=== PATIENT | male | born 1965 | race Caucasian/White ===

== ENCOUNTER 2019-04-04 18:59 | Emergency (ER) | payer OTHER ==
[2019-04-04] MEDS ORDERED: LIDOCAINE 1% INJ 10MG/ML (20 ML MDV) SQ STA (19:13)
[2019-04-04] MEDS ORDERED: WATER FOR IRRIG, STERILE 1,000 ML BTL IRRIGATION ONE (19:15)
--- NOTE | 2019-04-04 19:44 | XR ---
EXAMINATION TYPE: XR finger LT DATE OF EXAM: 04/04/2019 COMPARISON: NONE HISTORY: Laceration TECHNIQUE: 3 views FINDINGS: There is narrowing and spurring at the DIP joint. I see no fracture nor dislocation. There is no evidence of a foreign body. IMPRESSION: Osteoarthritis. No fracture seen. Laceration deformity at the PIP joint.
--- NOTE | 2019-04-04 19:59 | ED ---
General Adult HPI - General Chief complaint: Wound/Laceration Stated complaint: CUT FINGER Time Seen by Provider: 04/04/19 19:10 Source: patient, RN notes reviewed, old records reviewed Mode of arrival: ambulatory Limitations: no limitations - History of Present Illness Initial comments: 54-year-old male patient presents to ED for chief complaint laceration to his left index finger. Patient reports that he was using a ammonia box tender to cut a sausage when it slipped, going into the medial aspect adjacent to the PIP joint. Patient reports after the laceration occurred he did have paresthesias to the tips of his finger. Denies any other complaints. Systemic: Pt denies fatigue, fever/chills, rash. Pt denies weakness, night sweats, weight loss. Neuro: Pt denies headache, visual disturbances, syncope or pre-syncope. HEENT: Pt denies ocular discharge or irritation, otalgia, rhinorrhea, pharyngitis or notable lymphadenopathy. Cardiopulmonary: Pt denies chest pain, SOB, heart palpitations, dyspnea on exertion. Abdominal/GI: Pt denies abdominal pain, n/v/d. : Pt denies dysuria, burning w/ urination, frequency/urgency. Denies new onset urinary or bowel incontinence. MSK: Pt denies myalgia, loss of strength or function in extremities. Neuro: Pt denies new onset weakness, paresthesias. - Related Data Allergies Allergy/AdvReac Type Severity Reaction Status Date / Time Penicillins Allergy Rash/Hives Verified 04/04/19 19:08 Review of Systems ROS Statement: Those systems with pertinent positive or pertinent negative responses have been documented in the HPI. ROS Other: All systems not noted in ROS Statement are negative. Past Medical History Past Medical History: GERD/Reflux Additional Past Medical History / Comment(s): hiatal hernia History of Any Multi-Drug Resistant Organisms: None Reported Past Surgical History: Cholecystectomy Past Psychological History: No Psychological Hx Reported Smoking Status: Never smoker Past Alcohol Use History: Occasional Past Drug Use History: None Reported General Exam - General Exam Comments Initial Comments: Constitutional: NAD, AOX3, Pt has pleasant affect. HEENT: NC/AT, trachea midline, neck supple, no lymphadenopathy. Posterior pharynx non erythematous, without exudates. External ears appear normal, without discharge. Mucous membranes moist. Eyes PERRLA, EOM intact. There is no scleral icterus. No pallor noted. Cardiopulmonary: RRR, no murmurs, rubs or gallops, no JVD noted. Lungs CTAB in anterior and posterior feliciano. No peripheral edema. Abdominal exam: Abdomen soft and non-distended. Abdomen non-tender to palpation in all 4 quadrants. Bowel sounds active in LLQ. No hepatosplenomegaly. No ecchymosis Neuro: CN II-XII grossly intact. No nuchal rigidity. No raccon eyes, no esquivel sign, no hemotympanum. No cervical spinal tenderness. MSK: 2 cm laceration medial aspect of PIP joint second digit left hand. Gross sensation is intact, flexion at the PIP joint slightly limited. Otherwise range of motion is intact. Approximately with 5 simple interrupted sutures. Patient placed in a finger splint. Capillary refill less than 2 seconds. No posterior calf tenderness bilaterally, homans sign negative bilaterally. Posterior tibialis and radial pulse +2 bilaterally. Sensation intact in upper and lower extremities. Full active ROM in upper and lower extremities, 5/5 stregnth. Limitations: no limitations Course Vital Signs 04/04/19 04/04/19 19:03 20:08 Temperature 97.7 F 97.8 F Pulse Rate 83 71 Respiratory 20 18 Rate Blood Pressure 144/88 129/93 O2 Sat by Pulse 91 L 94 L Oximetry Procedures - Laceration Laceration #1 Consent Obtained: verbal consent Site: hand Size (cm): 2 Depth: simple, single layer Anesthesia Technique: local infiltration Amount (mls): 2 Pre-repair: wound explored, irrigated extensively, deep structures intact Type of Sutures: nylon Size of Sutures: 5-0 Number of Sutures: 5 Technique: simple, interrupted Patient Tolerated Procedure: well, no complications Medical Decision Making - Medical Decision Making 54-year-old male patient presents to ED for chief complaint of finger laceration. Posterior tetanus is up-to-date. Physical exam displayedL 2 cm laceration medial aspect of PIP joint second digit left hand. Gross sensation is intact, flexion at the PIP joint slightly limited. Otherwise range of motion is intact. Approximately with 5 simple interrupted sutures. Patient placed in a finger splint. Capillary refill less than 2 seconds. Plain films displayed no osseous process, soft tissue laceration. Wound is apparent irrigated. Patient placed in a finger splint. We'll discharge the patient orthopedic follow-up. Patient's pulse ox was slightly decreased. Patient reported his breathing is at baseline. 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 Reports that he has had some sinus congestion and mild cough. Denies any pain. Declines any further investigations or intervention, will return to ER if condition worsens.. Case discussed with Dr. Dooley. Disposition Clinical Impression: Laceration Disposition: HOME SELF-CARE Condition: Stable Instructions (If sedation given, give patient instructions): Finger Laceration (ED) Additional Instructions: Continue to wear straight finger splint. Follow up with orthopedic consult tomorrow. Return to ER physician worsens. Please return for suture removal: Hand: 7-10 days Face: 5 days Chest/abdomen: 12-14 days Extremities: 7-10 days Scalp: 7 days Eyebrow: 5-7 days Foot/sole: 12-14 days Please monitor for signs and symptoms of infection including: redness, warmth, drainage, discharge. Please return to ED if these signs or symptoms occur, new signs or symptoms develop or if condition worsens in anyway. Is patient prescribed a controlled substance at d/c from ED?: No Referrals: Cheryl Randall DO [Primary Care Provider] - 1-2 days Nima Bo MD [Medical Doctor] - 1-2 days
[2019-04-04 20:09] VITALS: BP 129/93; PULSE 71; RESP 18; TEMP 97.8
== END 2019-04-04 20:16 | disposition home or self-care (01) ==
LOC: EC 18:59
DX: S61.211A Laceration without foreign body of left index finger without damage to nail, initial encounter (principal); Z88.0 Allergy status to penicillin; W26.8XXA Contact with other sharp object(s), not elsewhere classified, initial encounter; Y93.89 Activity, other specified; Y92.009 Unspecified place in unspecified non-institutional (private) residence as the place of occurrence of the external cause
CPT/HCPCS: 73140; 99283; 12001; J2001

== ENCOUNTER → 2019-11-23 | Outpatient (CLI) | payer OTHER ==
--- NOTE | 2019-11-23 10:05 | FL ---
EXAMINATION TYPE: FL UGI air DATE OF EXAM: 11/23/2019 COMPARISON: NONE HISTORY: Pain TECHNIQUE: A double contrast UGI study is performed. 46 seconds of fluoroscopy and 14 images submitt ed. FINDINGS: Grain Unloader image of the abdomen shows no gross abnormality. The esophagus shows normal motility and emptying into the stomach. There is a large sliding hiatal he rnia with evidence of gastroesophageal reflux. The stomach shows normal distensibility, peristalsis, and mucosal folds. No evidence of any mass or ulcer disease. The duodenal bulb, sweep, and proximal small bowel loops are unremarkable. IMPRESSION: 1. Large sliding hiatal hernia with gastroesophageal reflux. Mild fold thickening of the distal esoph major could be associated with Benjamin's esophagus or reflux esophagitis correlate clinically. Correla te with direct visualization as clinically warranted.
== END | disposition home or self-care (01) ==
LOC: RADUSWWP 08:58
PROVIDERS: ATTEND Family Medicine
DX: K21.9 Gastro-esophageal reflux disease without esophagitis (principal); K44.9 Diaphragmatic hernia without obstruction or gangrene; R93.3 Abnormal findings on diagnostic imaging of other parts of digestive tract
CPT/HCPCS: 74246